=== PATIENT | female | born 1990 | race Caucasian/White ===

== ENCOUNTER 2016-05-24 13:36 | Emergency (ER) | payer OTHER ==
[~2016-05-24] VITALS: Ht 162.6 cm; Wt 81.6 kg
[~2016-05-24 13:36] MED LIST: PRENATAL1 TA6
[2016-05-24 13:50] VITALS: BP 149/83
--- NOTE | 2016-05-24 13:54 | NUR ---
PT TO BED 8 AT THIS TIME
[2016-05-24] MEDS ORDERED: NACL 0.9% 1,000 ML IV ONE (14:00)
--- NOTE | 2016-05-24 14:15 | NUR ---
PATIENT PRESENTS TO ED WITH TOOTHPAIN X 3 DAYS . PT STATES SHE HAS BEEN UNABLE TO GET IN TO SEE THE DENTIST, PAIN HAS MADE IT SO SHE CAN NOT EAT OR DRINK, SHE C/O N/V . DENIES LOOSE STOOLS; SKIN IS PINK/WARM/DRY; AAOX4 WITH EVEN AND STEADY GAIT; PT DENIES ANY FEVER, CP, SOB, OR COUGH AT THIS TIME; PATIENT STATES PAIN OF 10/10 AT THIS TIME; VSS; PATIENT POSITIONED FOR COMFORT; HOB ELEVATED; BEDRAILS UP X1; BED DOWN. AT BEDSIDE
--- NOTE | 2016-05-24 14:58 | NUR ---
DR CRAMER AT BEDSIDE
[2016-05-24] MEDS ORDERED: ONDANSETRON 4 MG/2 ML VIAL IVP ONE (15:05)
[2016-05-24] MEDS ORDERED: MORPHINE SULFATE 4 MG/ML SYR IVP ONE (15:25)
--- NOTE | 2016-05-24 15:41 | NUR ---
PATIENT MEDICATED WITH IV MS, BOTH SIDE RAILS UP X 2, AT BEDSIDE.
--- NOTE | 2016-05-24 16:16 | NUR ---
Patient discharged with v/s stable. Written and verbal after care instructions given and explained. Patient alert, oriented and verbalized understanding of instructions. Ambulatory with steady gait. All questions addressed prior to discharge. ID band removed. Patient advised to follow up with PMD. Rx of MARIA EUGENIA MELENDEZ given. Patient educated on indication of medication including possible reaction and side effects. Opportunity to ask questions provided and answered. PATIENT ADVISED TO FOLLOW UP DENTIST WELL PMD. ADVISED TO CONTINUE TAKING CURRENT ANTIBIOTIC AUGMENTON THAT WAS GIVEN BY PMD PER DR CRAMER.
[2016-05-24 16:17] VITALS: BP 149/81
== END 2016-05-24 16:16 | disposition home or self-care (01) ==
LOC: MED 13:36
DX: O26.891 Other specified pregnancy related conditions, first trimester (principal); K04.7 Periapical abscess without sinus; H05.012 Cellulitis of left orbit; R11.0 Nausea
CPT/HCPCS: 81002; 81025; 96361; 96374; 96375; 99284; J2270; J2405; J7030

== ENCOUNTER 2017-01-12 15:15 | Inpatient (IN) | payer OTHER ==
[~2017-01-12] VITALS: Ht 162.6 cm; Wt 87.1 kg
[~2017-01-12 15:15] MED LIST changes: +MULT-514; -PRENATAL1 TA6
[2017-01-12 15:20] VITALS: BP 105/65
[2017-01-12 15:35] VITALS: BP 105/65
[2017-01-12] MEDS ORDERED: FERR-252 PO (15:56)
[2017-01-12] MEDS ORDERED: PREN-546 PO (15:56)
[2017-01-12] MEDS ORDERED: MISOPROSTOL 25 MCG TAB ONE (20:25)
[2017-01-12] MEDS ORDERED: OXYTOCIN 20 UNITS in LACTATED RINGERS 1,000 ML IV SCH (20:39)
[2017-01-12] MEDS ORDERED: NALBUPHINE 10 MG/ML AMP IVP PRN (20:40)
[2017-01-12] MEDS ORDERED: MISOPROSTOL 25 MCG TAB VG ONE (20:40)
[2017-01-12 21:09] LABS: BASOPHILS % (AUTO) 0.3 % (0.0-2.0); EOSINOPHILS # (AUTO) 0.1 K/uL (0-0.4); EOSINOPHILS % (AUTO) 0.8 % (0.0-4.0); HEMATOCRIT 34.3 % (36-48); HEMOGLOBIN 10.9 g/dL (12.0-16.0); LYMPHOCYTES # (AUTO) 1.9 K/uL (2.5-16.5); LYMPHOCYTES % (AUTO) 16.7 % (20.5-51.1); MEAN CORPUSCULAR HEMOGLOBIN 24 pg (27-31); MEAN CORPUSCULAR HGB CONC 32 g/dL (33-37); MEAN CORPUSCULAR VOLUME 74 fL (80-94); MONOCYTES # (AUTO) 0.7 K/uL (0.8-1.0); MONOCYTES % (AUTO) 5.9 % (1.7-9.3); NEUTROPHILS # (AUTO) 8.7 K/uL (1.8-7.7); NEUTROPHILS % (AUTO) 76.3 % (42.2-75.2); PLATELET COUNT (AUTO) 275 K/uL (140-450); RED BLOOD CELL COUNT(AUTO) 4.62 MIL/uL (4.20-5.40); WHITE BLOOD COUNT (AUTO) 11.4 K/uL (4.8-10.8)
[2017-01-12 21:25] LABS: ALBUMIN 2.7 g/dL (3.4-5.0); ANION GAP 13.1 (8-16); CARBON DIOXIDE 24.5 mmol/L (21-32); CREATININE 0.6 mg/dL (0.6-1.3); POTASSIUM 3.6 mmol/L (3.5-5.1); TOTAL BILIRUBIN 0.5 mg/dL (0.0-1.0)
[2017-01-12 21:33] VITALS: BP 129/79
[2017-01-13] MEDS: LACTATED RINGERS 1,000 ML IV SCH ×3 (00:28→11:35)
[2017-01-13 01:04] LABS: APPEARANCE,URINE CLOUDY (CLEAR); BILIRUBIN,URINE 1+ (NEGATIVE); BLOOD, URINE NEGATIVE (NEGATIVE); COLOR,URINE YELLOW (YELLOW); LEUKOCYTE ESTERASE ,URINE TRACE (NEGATIVE); NITRITE, URINE NEGATIVE (NEGATIVE); PH,URINE 6.5 (5.0-9.0); UGLUCOSE NEGATIVE (NEGATIVE)
[2017-01-13 01:34] LABS: RBC,URINE 0-5 (RARE) /HPF (0-5)
[2017-01-13] MEDS ORDERED: OXYTOCIN 20 UNITS/LR PREMIX 1,000 ML IV ONE (03:58)
--- NOTE | 2017-01-13 09:37 | NUR ---
PATIENT HAS BEEN SCREENED AND CATEGORIZED LOW NUTRITION RISK. PATIENT WILL BE SEEN WITHIN 7 DAYS OF ADMISSION. 01/19/[address]
[2017-01-13] MEDS ORDERED: PROMETHAZINE 25 MG/ML VIAL ONE (09:48)
[2017-01-13] MEDS ORDERED: NALBUPHINE HYDROCHLORIDE 10 MG/ML VIAL ONE (09:48)
[2017-01-13] MEDS ORDERED: OXYTOCIN 10 UNITS/ML VIAL ONE (11:52)
[2017-01-13] MEDS ORDERED: LIDOCAINE 1% 50 ML ONE (11:52)
[2017-01-13] MEDS ORDERED: ROPIVACAINE 0.2%/NS PREMIX 250 ML EPI ONE (11:53)
[2017-01-13] MEDS ORDERED: OXYTOCIN 20 UNITS in LACTATED RINGERS 1,000 ML IV SCH (16:48)
[2017-01-13] MEDS ORDERED: BENZOCAINE/MENTHOL 20%-0.5% 60 GM CAN TP PRN (16:50)
[2017-01-13] MEDS ORDERED: MEASLES, MUMPS, AND RUBELLA 1 VIAL SQVAC PRN (16:50)
[2017-01-13] MEDS: ACETAMINOPHEN 325 MG TAB PO PRN (22:14)
[2017-01-13] MEDS: BISACODYL 5 MG TABEC PO PRN (22:14)
[2017-01-14] MEDS: oxyCODONE/APAP 5/325 MG 1 TAB TAB PO PRN ×2 (02:00→20:10)
[2017-01-14] MEDS ORDERED: INFLUENZA VIRUS VACCINE QUAD 0.5 ML SYR IMVAC ONE (04:48)
[2017-01-14 09:03] LABS: BASOPHILS # (AUTO) 0.1 K/uL (0.00-0.22); BASOPHILS % (AUTO) 0.6 % (0.0-2.0); EOSINOPHILS # (AUTO) 0.1 K/uL (0-0.4); EOSINOPHILS % (AUTO) 1.1 % (0.0-4.0); HEMOGLOBIN 9.1 g/dL (12.0-16.0); LYMPHOCYTES # (AUTO) 2.1 K/uL (2.5-16.5); LYMPHOCYTES % (AUTO) 16.1 % (20.5-51.1); MEAN CORPUSCULAR HEMOGLOBIN 23 pg (27-31); MEAN CORPUSCULAR HGB CONC 30 g/dL (33-37); MEAN CORPUSCULAR VOLUME 75 fL (80-94); MONOCYTES # (AUTO) 0.8 K/uL (0.8-1.0); MONOCYTES % (AUTO) 5.8 % (1.7-9.3); NEUTROPHILS # (AUTO) 10.2 K/uL (1.8-7.7); NEUTROPHILS % (AUTO) 76.4 % (42.2-75.2); PLATELET COUNT (AUTO) 251 K/uL (140-450); RED BLOOD CELL COUNT(AUTO) 3.98 MIL/uL (4.20-5.40); RED CELL DISTRIBUTION WIDTH 15.1 % (11.6-13.7); WHITE BLOOD COUNT (AUTO) 13.3 K/uL (4.8-10.8)
[2017-01-14] MEDS: ACETAMINOPHEN 325 MG TAB PO PRN (13:44)
[2017-01-15] MEDS: oxyCODONE/APAP 5/325 MG 1 TAB TAB PO PRN (13:16)
[2017-01-15] MEDS: BISACODYL 5 MG TABEC PO PRN (13:16)
[2017-01-15] MEDS ORDERED: ACET-2619 PO (14:29)
--- NOTE | 2017-01-16 07:59 | NUR ---
FAXED RETRO INFORMATION TO [facility] [phone] PHONE JULY [phone]
[2017-01-16] MEDS ORDERED: INFLUENZA VIRUS VACCINE QUAD 0.5 ML SYR IMVAC SCH (23:55)
== END 2017-01-15 17:41 | disposition home or self-care (01) | DRG 560 ==
LOC: MLD 15:15 → OBSVTOIN 20:20 → MFCC 01-13 21:00
PROVIDERS: ADMIT Obstetrics & Gynecology; ATTEND Obstetrics & Gynecology
PROC: 10E0XZZ Delivery of Products of Conception, External Approach (ICD-10-PCS; principal; 2017-01-12)
PROC: 3E0R3BZ Introduction of Anesthetic Agent into Spinal Canal, Percutaneous Approach (ICD-10-PCS; 2017-01-12)
PROC: 00HU33Z Insertion of Infusion Device into Spinal Canal, Percutaneous Approach (ICD-10-PCS; 2017-01-12)
PROC: 10907ZC Drainage of Amniotic Fluid, Therapeutic from Products of Conception, Via Natural or Artificial Opening (ICD-10-PCS; 2017-01-12)
PROC: 0HQ9XZZ Repair Perineum Skin, External Approach (ICD-10-PCS; 2017-01-12)
PROC: 3E0P7VZ Introduction of Hormone into Female Reproductive, Via Natural or Artificial Opening (ICD-10-PCS; 2017-01-12)
DX: O69.81X0 Labor and delivery complicated by cord around neck, without compression, not applicable or unspecified (principal); O45.93 Premature separation of placenta, unspecified, third trimester; O70.0 First degree perineal laceration during delivery; Z37.0 Single live birth; Z3A.00 Weeks of gestation of pregnancy not specified
CPT/HCPCS: G0378 ×5; 36415; 51702; 59200; 59409; 76805; 80053; 81001; 85025; 85379; 85384; 85610; 85730; 86592; 86886; 86900; 86901; 87086; 90658; J2001; J2300; J2550; J2590; J2795; J7120; Q0092